=== PATIENT | male | born 1985 | race African-American/Black ===

== ENCOUNTER 2016-11-10 00:40 | Emergency (ER) | payer OTHER ==
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
--- NOTE | ~2016-11-10 | EKG ---
PATIENT: JUSTO THORNTON UNIT #: [id number] Ventricular Rate: 72 BPM Atrial Rate: 72 BPM P-R Interval: 172 ms QRS Duration: 102 ms Q-T Interval: 388 ms QTC Calculation(Bezet): 424 ms P [place]: 55 degrees Calculated R [place]: 12 degrees Calculated T [place]: 15 degrees Diagnosis Line: Normal sinus rhythm Diagnosis Line: Normal ECG Diagnosis Line: No previous ECGs available Diagnosis Line: Confirmed by HARIKA SMITH MD ([id number]) on 11/21/2016 Diagnosis Line: 11:47:25 AM INTERPRETING MD: SARAH DALEY
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
[~2016-11-10 00:40] MED LIST: CIPRO PO; FLAGYL PO; LORTAB 7.5-5001 TAB PO; NO MEDICATIONS; PHENERGAN PO
[2017-04-17] MEDS ORDERED: ALBUTEROL17 GM (21:23)
== END 2016-11-10 01:39 | disposition home or self-care (01) ==
LOC: SED 00:40
DX: S09.90XA Unspecified injury of head, initial encounter (principal); S39.012A Strain of muscle, fascia and tendon of lower back, initial encounter; Z87.891 Personal history of nicotine dependence; V49.40XA Driver injured in collision with unspecified motor vehicles in traffic accident, initial encounter; Y92.488 Other paved roadways as the place of occurrence of the external cause
CPT/HCPCS: 70450; 71020; 72100; 93005; 99284

== ENCOUNTER 2016-12-26 22:12 | Emergency (ER) | payer OTHER ==
[2016-12-26] MEDS ORDERED: NEURONTIN PO (22:30)
[2016-12-26] MEDS ORDERED: NAPROXEN (22:30)
[2017-04-17] MEDS ORDERED: ALBUTEROL17 GM (21:23)
== END 2016-12-26 23:42 | disposition home or self-care (01) ==
LOC: SED 22:12
DX: K08.89 Other specified disorders of teeth and supporting structures (principal); F17.210 Nicotine dependence, cigarettes, uncomplicated
CPT/HCPCS: 99283

== ENCOUNTER 2016-12-29 22:19 | Emergency (ER) | payer OTHER ==
--- NOTE | ~2016-12-29 | CR72 ---
[facility]. [facility] A Service of [facility] & [facility] RADIOLOGY TEXT RESULTS PATIENT: JUSTO THORNTON LOCATION: SED : 85 UNIT #: [id number] AGE: [address]: Pj Romero MD SEX: M ORDER DR: [id number] [place] [id number] E MR#: [id number] Acc #: [id number] NAME: JUSTO THORNTON : 1985 SEX: M STUDY DATE/TIME: 12/29/2016 22:40 UNIT: SED ROOM: STUDY DESCRIPTION: CR Chest Single View Portable Attending Physician: Pj Romero M.D. Ordering Physician: Pj Romero M.D. Primary Care Physician: Primary Care Physician No MEDICAL IMAGING REPORT This report is preliminary unless electronic signature is present. EXAM Chest x-ray 12/29/2016 HISTORY 31-year-old male in the ED complaining of 2-month history of shortness of air, cough and chest pain. TECHNIQUE AP portable chest x-ray. FINDINGS The heart size and pulmonary vascularity are within normal limits. No visible acute pulmonary infiltrate or pleural effusion. Minimal left basilar scarring. No change since 11/10/2016. IMPRESSION Mild left basilar scarring. No active disease. No change since 11/10/2016. Dictated by... Jesus Alberto Ho M.D. THIS IS AN ELECTRONICALLY VERIFIED REPORT Jesus Alberto Ho M.D. at 12/30/2016 9:56 PM Elizabeth TD: 12/30/2016 08:34 JOB #: [id number] MEDICAL IMAGING REPORT Page 1 of 1
--- NOTE | ~2016-12-29 | EKG ---
PATIENT: JUSTO THORNTON UNIT #: [id number] Ventricular Rate: 86 BPM Atrial Rate: 86 BPM P-R Interval: 154 ms QRS Duration: 98 ms Q-T Interval: 358 ms QTC Calculation(Bezet): 428 ms P [place]: 61 degrees Calculated R [place]: 30 degrees Calculated T [place]: 28 degrees Diagnosis Line: Normal sinus rhythm Diagnosis Line: Possible Left atrial enlargement Diagnosis Line: Borderline ECG Diagnosis Line: When compared with ECG of 10-NOV-2016 00:49, Diagnosis Line: No significant change was found Diagnosis Line: Confirmed by DAVID GUZMAN MD ([id number]) on Diagnosis Line: 12/30/2016 3:41:52 PM INTERPRETING MD: MEGAN DALEY
[~2016-12-29 22:19] MED LIST changes: +NAPROXEN; +NEURONTIN PO
[2016-12-29] MEDS ORDERED: LORTAB (22:29)
[2016-12-29 22:43] LABS: BASOPHIL# 0.1 X10e3 (0-0.3); BASOPHIL% 0.9 % (0-2.5); EOSINOPHIL# 0.1 X10e3 (0-0.7); EOSINOPHIL% 1.2 % (0.0-7.0); HEMATOCRIT 45.5 % (38.0-50.0); HEMOGLOBIN 15.2 gm/dL (13.0-16.0); LYMPHOCYTE# 2.1 X10e3 (1.0-3.5); LYMPHOCYTE% 20.1 % (17.0-45.0); MEAN CELL VOLUME 88.2 FL (83-96); MEAN CORPUSCULAR HEMOGLOBIN 29.5 PG (28-34); MEAN CORPUSCULAR HGB CONC 33.5 g/dL (30-36); MEAN PLATELET VOLUME 8.2 FL (6.5-11.5); MONOCYTE# 0.6 X10e3 (0-1.0); MONOCYTE% 5.8 % (3.0-12.0); NEUTROPHIL# 7.6 X10e3 (1.5-7.1); PLATELET COUNT 290 X10e3 (140-420); RED BLOOD COUNT 5.16 X10e (3.90-5.60); RED CELL DISTRIBUTION WIDTH 13.5 % (11.0-15.5); WHITE BLOOD COUNT 10.5 X10e3 (4.0-10.5)
[2016-12-29 22:46] LABS: DIFF IND NO
[2016-12-29 22:59] LABS: POC - CKMB 1.3 ng/mL (0.0-7.9); POC - TROPONIN <0.05 ng/mL (<=0.05)
[2016-12-29 23:02] LABS: ALBUMIN SERUM 4.5 g/dL (3.5-5.0); BILIRUBIN, DIRECT 0.1 mg/dL (0.0-0.2); BILIRUBIN,INDIRECT 0.8 mg/dL (0.0-0.9); BILIRUBIN,TOTAL 0.9 mg/dL (0.2-2.0); CALCIUM SERUM 9.1 mg/dL (8.4-10.2); CREATININE SERUM 1.3 mg/dL (0.6-1.4); GLOM FILT RATE Estimated 84.3 mL/min (>60); POTASSIUM 4.2 mmol/L (3.5-5.1); PROTEIN TOTAL SERUM 7.3 g/dL (6.0-8.3)
[2016-12-30] MEDS ORDERED: VOLTAREN75 MG PO (00:43)
[2017-04-17] MEDS ORDERED: ALBUTEROL17 GM (21:23)
== END 2016-12-30 00:54 | disposition home or self-care (01) ==
LOC: SED 22:19
PROVIDERS: Emergency Medicine
DX: R07.89 Other chest pain (principal); M94.0 Chondrocostal junction syndrome [Tietze]; F41.9 Anxiety disorder, unspecified; Z79.899 Other long term (current) drug therapy; Z87.891 Personal history of nicotine dependence
CPT/HCPCS: 36415; 71010; 80048; 80076; 82553; 84484; 85025; 93005; 96361; 96374; 96375; 99284; J1885; J2060

== ENCOUNTER 2017-01-11 01:28 | Emergency (ER) | payer OTHER ==
--- NOTE | ~2017-01-11 | CR63 ---
[facility]. [facility] A Service of [facility] & [facility] RADIOLOGY TEXT RESULTS PATIENT: JUSTO THORNTON LOCATION: SED : 85 UNIT #: [id number] AGE: [address]: Mauricio Sierra MD SEX: M ORDER DR: [id number] [place] [id number] E MR#: [id number] Acc #: [id number] NAME: JUSTO THORNTON : 1985 SEX: M STUDY DATE/TIME: 01/11/2017 03:02 UNIT: SED ROOM: STUDY DESCRIPTION: CR Chest 2 View Attending Physician: Mauricio Sierra M.D. Ordering Physician: Mauricio Sierra M.D. Primary Care Physician: No Primary Care Physician MEDICAL IMAGING REPORT This report is preliminary unless electronic signature is present. EXAM Chest x-ray, 01/11 at 03:02. INDICATIONS Cough, congestion, body aches and chest pain for 1 week. FINDINGS PA and lateral views of the chest are compared with 12/29/16. Cardiac and mediastinal contours are stable. Lung volumes are low. There is chronic scarring at the left base. Lungs otherwise are clear. No pneumothorax. IMPRESSION Low lung volumes with chronic scarring at the left base. Dictated by... Germán Cornelius Jr., M.D. THIS IS AN ELECTRONICALLY VERIFIED REPORT Germán Cornelius Jr., M.D. at 01/12/2017 3:16 AM SHANNAN/gerry TD: 01/11/2017 07:52 JOB #: [id number] MEDICAL IMAGING REPORT Page 1 of 1
[~2017-01-11 01:28] MED LIST changes: +LORTAB; +VOLTAREN75 MG PO
[2017-01-11] MEDS ORDERED: NEURONTIN (01:43)
[2017-01-11] MEDS ORDERED: MOBIC (01:43)
[2017-04-17] MEDS ORDERED: ALBUTEROL17 GM (21:23)
== END 2017-01-11 03:23 | disposition home or self-care (01) ==
LOC: SED 01:28
DX: J01.90 Acute sinusitis, unspecified (principal)
CPT/HCPCS: 71020; 99283

== ENCOUNTER 2017-03-08 19:55 | Emergency (ER) | payer OTHER ==
[~2017-03-08] VITALS: Ht 167.6 cm; Wt 106.6 kg
--- NOTE | ~2017-03-08 | CT16 ---
[facility] A Service [facility] RADIOLOGY TEXT RESULTS PATIENT: JUSTO THORNTON LOCATION: SED : 85 UNIT #: [id number] AGE: [address]: Minerva Hernandez MD SEX: M ORDER DR: [id number] [place] [id number] E MR#: [id number] Acc #: [id number] NAME: JUSTO THORNTON : 1985 SEX: M STUDY DATE/TIME: 03/08/2017 22:16 UNIT: SED ROOM: STUDY DESCRIPTION: CT Angio Chest for PE Attending Physician: Minerva Hernandez M.D. Ordering Physician: Minerva Hernandez M.D. Primary Care Physician: No Primary Care Physician MEDICAL IMAGING REPORT This report is preliminary unless electronic signature is present. EXAM Chest CTA, 03/08 at 2216. INDICATION Cough and congestion for 1 month. History of hypertension. The patient has pain which is currently 10/10. TECHNIQUE Axial images were obtained through the chest following IV contrast administration. 3-D reformats were obtained. This CT exam was performed with one or more of the following radiation dose reduction techniques: automatic exposure control, adjustment of mA and/or kV according to patient size, and iterative reconstruction. COMPARISON No comparison chest CT. FINDINGS There is no pulmonary embolism or aortic dissection. There is no pleural or pericardial effusion. There is no adenopathy. The lungs are clear. No pneumothorax. Upper abdomen is unremarkable. IMPRESSION 1. No pulmonary embolism or aortic dissection. 2. No active disease in the chest. Dictated by... Germán Cornelius Jr., M.D. [facility] A Service [facility] RADIOLOGY TEXT RESULTS PATIENT: JUSTO THORNTON LOCATION: SED : 85 UNIT #: [id number] AGE: [address]: Minerva Hernandez MD SEX: M ORDER DR: THIS IS AN ELECTRONICALLY VERIFIED REPORT Germán Cornelius Jr., M.D. at 03/10/2017 3:11 AM SHANNAN/skylar TD: 03/09/2017 19:31 JOB #: [id number] MEDICAL IMAGING REPORT Page 1 of 1
--- NOTE | ~2017-03-08 | EKG ---
PATIENT: JUSTO THORNTON UNIT #: [id number] Ventricular Rate: 64 BPM Atrial Rate: 64 BPM P-R Interval: 176 ms QRS Duration: 102 ms Q-T Interval: 390 ms QTC Calculation(Bezet): 402 ms P [place]: 50 degrees Calculated R [place]: 5 degrees Calculated T [place]: 11 degrees Diagnosis Line: Sinus rhythm with marked sinus arrhythmia Diagnosis Line: Minimal voltage criteria for LVH, may be normal Diagnosis Line: variant Diagnosis Line: Borderline ECG Diagnosis Line: When compared with ECG of 29-DEC-2016 22:22, Diagnosis Line: No significant change was found Diagnosis Line: Confirmed by DAVID GUZMAN MD ([id number]) on Diagnosis Line: 03/10/2017 3:09:36 PM INTERPRETING MD: MEGAN DALEY
--- NOTE | ~2017-03-08 | CR72 ---
[facility]. [facility] A Service of [facility] & [facility] RADIOLOGY TEXT RESULTS PATIENT: JUSTO THORNTON LOCATION: SED : 85 UNIT #: [id number] AGE: [address]: Minerva Hernandez MD SEX: M ORDER DR: [id number] [place] [id number] E MR#: [id number] Acc #: [id number] NAME: JUSTO THORNTON : 1985 SEX: M STUDY DATE/TIME: 03/08/2017 22:05 UNIT: SED ROOM: STUDY DESCRIPTION: CR Chest Single View Portable Attending Physician: Minerva Hernandez M.D. Ordering Physician: Minerva Hernandez M.D. Primary Care Physician: Primary Care Physician No MEDICAL IMAGING REPORT This report is preliminary unless electronic signature is present. EXAM Single view chest INDICATIONS Cough. Congestion. FINDINGS Single portable AP view of the chest compared to 01/11/2017. Heart and mediastinal contours are normal. Lungs are clear. No pleural effusion. IMPRESSION No acute cardiopulmonary findings. Dictated by... Steven Mejia M.D. THIS IS AN ELECTRONICALLY VERIFIED REPORT Steven Mejia M.D. at 03/09/2017 7:52 PM RPC/chance TD: 03/09/2017 19:27 JOB #: [id number] MEDICAL IMAGING REPORT Page 1 of 1
[~2017-03-08 19:55] MED LIST changes: +MOBIC; +NEURONTIN
[2017-03-08 21:30] LABS: BASOPHIL# 0.1 X10e3 (0-0.3); BASOPHIL% 2.1 % (0-2.5); EOSINOPHIL# 0.2 X10e3 (0-0.7); EOSINOPHIL% 2.6 % (0.0-7.0); HEMATOCRIT 47.4 % (38.0-50.0); HEMOGLOBIN 16.3 gm/dL (13.0-16.0); LYMPHOCYTE# 2.3 X10e3 (1.0-3.5); LYMPHOCYTE% 35.8 % (17.0-45.0); MEAN CELL VOLUME 88.6 FL (83-96); MEAN CORPUSCULAR HEMOGLOBIN 30.5 PG (28-34); MEAN CORPUSCULAR HGB CONC 34.4 g/dL (30-36); MEAN PLATELET VOLUME 8.3 FL (6.5-11.5); MONOCYTE# 0.5 X10e3 (0-1.0); MONOCYTE% 7.7 % (3.0-12.0); NEUTROPHIL# 3.3 X10e3 (1.5-7.1); NEUTROPHIL% 51.8 % (40-75); PLATELET COUNT 270 X10e3 (140-420); RED BLOOD COUNT 5.35 X10e (3.90-5.60); RED CELL DISTRIBUTION WIDTH 14.2 % (11.0-15.5); WHITE BLOOD COUNT 6.4 X10e3 (4.0-10.5)
[2017-03-08 21:40] LABS: DIFF IND NO
[2017-03-08 21:45] LABS: INR 1.1; PROTHROMBIN TIME (PATIENT) 11.9 SECONDS (9.5-12.4)
[2017-03-08 21:52] LABS: PARTIAL THROMBOPLASTIN TIME 28.9 SECONDS (25.6-38.1)
[2017-03-08 21:54] LABS: POC - CKMB 1.4 ng/mL (0.0-7.9); POC - TROPONIN <0.05 ng/mL (<=0.05)
[2017-03-08 21:59] LABS: ALBUMIN SERUM 4.9 g/dL (3.5-5.0); BILIRUBIN,TOTAL 0.4 mg/dL (0.2-2.0); BUN/CREATININE RATIO 13.07; CALCIUM SERUM 9.8 mg/dL (8.4-10.2); CREATININE SERUM 1.3 mg/dL (0.6-1.4); GLOM FILT RATE Estimated 83.7 mL/min (>60); PROTEIN TOTAL SERUM 7.9 g/dL (6.0-8.3)
[2017-03-08 22:00] LABS: BILIRUBIN,INDIRECT 0.4 mg/dL (0.0-0.9)
[2017-03-08 23:22] LABS: POC - CKMB 1.2 ng/mL (0.0-7.9); POC - TROPONIN <0.05 ng/mL (<=0.05)
[2017-04-17] MEDS ORDERED: ALBUTEROL17 GM (21:23)
== END 2017-03-08 23:25 | disposition home or self-care (01) ==
LOC: SED 19:55
PROVIDERS: Emergency Medicine
DX: R07.89 Other chest pain (principal); R05 Cough
CPT/HCPCS: 36415; 71010; 71275; 80048; 80076; 82553; 83880; 84484; 85025; 85610; 85730; 93005; 96374; 96375; 99284; J1100; J1885; Q9967